=== PATIENT | male | born 1950 | race American Indian/Alaskan Native ===

== ENCOUNTER 2016-09-21 06:58 | Day surgery (SDC) | payer MEDICARE ==
[~2016-09-21 06:58] MED LIST: VANCOMYCIN/NS 1 GM/250 ML 1 GM/250 ML BAG IV NR
[2016-09-21] MEDS ORDERED: NACL 0.9% 1000 ML 1,000 ML ONE (07:21)
[2016-09-21] MEDS ORDERED: SUBLIMAZE ONE (07:51)
[2016-09-21] MEDS ORDERED: DIPRIVAN 10 MG/ML IV ONE ×2 (07:51→07:52)
[2016-09-21] MEDS ORDERED: XYLOCAINE MPF 2% ONE (07:52)
--- NOTE | 2016-09-21 07:52 | Anesthesia Consultation ---
Anesthesia Consult and Med Hx Date of service: 09/21/16 (Scheduled for lap Ventral Hernia repair) - Airway Anesthetic Teeth Evaluation: Partials (upper) ROM Head & Neck: Adequate Mental/Hyoid Distance: Adequate Mallampati Class: Class III Intubation Access Assessment: Possibly Difficult - Pulmonary Exam CTA: Yes - Cardiac Exam Cardiac Exam: RRR - Pre-Operative Health Status ASA Pre-Surgery Classification: ASA3 Proposed Anesthetic Plan: General - Pre-Anesthesia Comment Pre-Anesthesia Comments: No previous surgeries. Pt has tolerated anesthesia with yearly EGD's. NPO since midnight. - Pulmonary Hx Smoking: Yes (STOPPED X 40 YRS- 1/2 PPD) Hx Sleep Apnea: No (GABINO PRE SCREEN HIGH RISK) - Cardiovascular System Hx Hypertension: Yes (X 10 YRS) Hx Coronary Artery Disease: No Hx Heart Attack/AMI: No - Central Nervous System Hx Seizures: No CVA: No Hx Psychiatric Problems: No - Gastrointestinal Hx Gastroesophageal Reflux Disease: Yes (Controlled w/ meds) - Endocrine Hx Renal Disease: No Hx Cirrhosis: Yes (STATES FROM ALCOHOL ABUSE) Hx Liver Disease: Yes (Hep C) Hx Insulin Dependent Diabetes: Yes Hx Thyroid Disease: No - Hematic Hx Anemia: Yes Hx Sickle Cell Disease: No (SC TRAIT ONLY) - Other Systems Hx Alcohol Use: Yes (ALCOHOL ABUSE- DRY X 40 YRS) Hx Substance Use: Yes (HEROIN ABUSE- CLEAN X 40 YRS) Hx Cancer: No Hx Obesity: Yes (BMI=35)
[2016-09-21 08:00] LABS: Basophils % (Auto) 0.4 % (0.0-1.8); Eosinophils % (Auto) 3.1 % (0.0-4.3); Hematocrit 34.5 % (35.5-45.6); Hemoglobin 11.6 gm/dl (11.8-15.2); Mean Corpuscular HGB Conc 34 % (32-34); Mean Corpuscular Volume 75 fl (84-94); Platelet Count 100 K/mm3 (140-440); Red Blood Count 4.58 M/mm3 (3.65-5.03); Red Cell Distribution Width 14.8 % (13.2-15.2); White Blood Count 5.8 K/mm3 (4.5-11.0)
[2016-09-21] MEDS ORDERED: NACL 0.9% 1000 ML 1,000 ML IV SCH (08:00)
[2016-09-21] MEDS ORDERED: VERSED IV NR (08:00)
[2016-09-21] MEDS ORDERED: PEPCID PO NR (08:00)
[2016-09-21 08:02] LABS: Mean Corpuscular Hemoglobin 25 pg (28-32)
[2016-09-21] MEDS ORDERED: DILAUDID IV PRN (08:03)
--- NOTE | 2016-09-21 08:03 | Anesthesia Day of Surgery ---
Anesthesia Day of Surgery - Day of Surgery Patient Examined: Yes Patient H&P Reviewed: Yes Patient is NPO: Yes Beta Blockers: Yes Cardiac Clearance: No Pulmonary Clearance: No
[2016-09-21 08:20] LABS: Albumin/Globulin Ratio 1.1 %; Alkaline Phosphatase 51 units/L (35-129); Anion Gap 16 mmol/L; Bilirubin,Total 0.2 mg/dL (0.1-1.2); Blood Urea Nitrogen 20 mg/dL (9-20); Calcium 9.1 mg/dL (8.4-10.2); Carbon Dioxide 24 mmol/L (22-30); Chloride 100.9 mmol/L (98-107); Glucose 177 mg/dL (75-100); Potassium 4.3 mmol/L (3.6-5.0); Sodium 137 mmol/L (137-145); Total Protein 7.8 g/dL (6.3-8.2)
[2016-09-21] MEDS ORDERED: MARCAINE 0.25% INFILTRATI ONE ×3 (08:30→09:50)
[2016-09-21 08:31] LABS: Alanine Aminotransferase 106 units/L (7-56)
[2016-09-21] MEDS ORDERED: XYLOCAINE 1%/ EPI 1:100,000 INFILTRATI ONE (08:31)
[2016-09-21] MEDS ORDERED: ZOFRAN ONE ×2 (09:43→11:50)
[2016-09-21] MEDS ORDERED: NACL 0.9% IR ONE (09:50)
--- NOTE | 2016-09-21 10:13 | Short Stay Summary ---
Short Stay Documentation Date of service: 09/21/16 - Allergies and Medications Current Medications: Allergies Penicillins Allergy (Verified 09/13/16 14:41) Swelling Home Medications Medication Instructions Recorded Confirmed Last Taken Type Esomeprazole Magnesium [NexIUM] 40 mg PO QDAY 09/13/16 09/13/16 09/20/16 History Gabapentin [Neurontin] 1,200 mg PO QPM 09/13/16 09/13/16 09/20/16 History Hydrochlorothiazide [HCTZ] 25 mg PO QDAY 09/13/16 09/13/16 09/21/16 06:30 History Insulin Glargine [Lantus] 60 unit SUB-Q QHS 09/13/16 09/13/16 09/20/16 History Insulin Lispro [Humalog] 40 unit SQ BID 09/13/16 09/13/16 09/20/16 History Multivits,Ca,Min/Iron/FA/Lycop 1 each PO DAILY 09/13/16 09/13/16 09/20/16 History [Centrum Ultra Men's Tablet] Telmisartan [Micardis] 80 mg PO QDAY 09/13/16 09/13/16 09/21/16 06:30 History Ursodiol 300 mg PO DAILY 09/13/16 09/13/16 09/20/16 History amLODIPine [Norvasc] 10 mg PO DAILY 09/13/16 09/21/16 09/21/16 06:30 History Acetaminophen [Tylenol Arthritis] 650 mg PO PRN PRN 09/21/16 09/21/16 09/20/16 History Hydralazine HCl [Hydralazine HCl] 25 mg PO DAILY 09/21/16 09/21/16 09/21/16 06: 30 History Active Medications Famotidine (Pepcid) 20 mg PO PREOP NR Stop: 09/21/16 23:59 Last Admin: 09/21/16 08:36 Dose: 20 mg Fentanyl (Sublimaze) 50 mcg IV Q5MIN PRN PRN Reason: Pain , Severe (7-10) Stop: 09/21/16 18:00 Hydromorphone HCl (Dilaudid) 0.5 mg IV Q10MIN PRN PRN Reason: Pain , Severe (7-10) Stop: 09/21/16 18:00 Vancomycin HCl (Vancomycin/Ns 1 Gm/250 Ml) 1 gm in 250 mls @ 167.007 mls/hr IV PREOP NR PRN Reason: Protocol Stop: 09/21/16 23:00 Last Admin: 09/21/16 08:39 Dose: 167.007 mls/hr Sodium Chloride (Nacl 0.9% 1000 Ml) 1,000 mls @ 42 mls/hr IV DIRECT GERDA Last Admin: 09/21/16 07:45 Dose: 42 mls/hr Midazolam HCl (Versed) 2 mg IV PREOP NR Stop: 09/21/16 23:59 Last Admin: 09/21/16 08:37 Dose: 2 mg - Brief post op/procedure progress note Date of procedure: 09/21/16 Pre-op diagnosis: Soft tissue mass L shoulder >3cm Post-op diagnosis: same Procedure: Excision of soft tissue mass Anesthesia: GETA, local Surgeon: APRYL CHICAS Estimated blood loss: none Pathology: list (soft tissue mass) Specimen disposition: to lab Condition: stable - Disposition Condition at discharge: Good Disposition: DISCHARGED TO HOME OR SELFCARE Short Stay Discharge Plan Activity: no restrictions Diet: regular Wound: remove dressing (09/23/16 and then may shower) Follow up with: PHILIPPE RODRIGUEZ MD [Primary Care Provider] - 7 Days APRYL CHICAS MD [Staff Physician] - 7 Days Prescriptions: oxyCODONE /ACETAMINOPHEN [Percocet 5/325] 1 tab PO Q4HR PRN #20 tab PRN Reason: Pain
[2016-09-21] MEDS: SUBLIMAZE IV PRN ×2 (10:41→10:47)
[2016-09-21] MEDS ORDERED: PERCOCET 5/325 PO PRN (10:59)
[2016-09-21 11:06] VITALS: BP 160/82
--- NOTE | 2016-09-21 11:33 | Post Anesthesia Evaluation ---
- Post Anesthesia Evaluation Patient Participated: No Airway Patent: Yes Stable Respiratory Function: Yes Nausea/Vomiting: No Temp > 96.8F: Yes Pain Manageable: Yes Adequeate Hydration: Yes Anesthesia Complications: No Block Receding Appropriately: No Patient on Ventilator: No
--- NOTE | 2016-09-21 12:39 | Operative Report ---
PREOPERATIVE DIAGNOSIS: Soft tissue mass, left shoulder, greater than 3 cm. POSTOPERATIVE DIAGNOSIS: Soft tissue mass, left shoulder, greater than 3 cm. PROCEDURE: Excision of soft tissue mass, left shoulder, greater than 3 cm. SURGEON: Tato Levy MD ANESTHESIA: General and local. ESTIMATED BLOOD LOSS: Minimal. SPECIMEN: Soft tissue mass, left shoulder. COMPLICATIONS: None. INDICATIONS: This is a 66-year-old gentleman who has a soft tissue mass in the left shoulder, presents now for excision for diagnostic and therapeutic purposes. DESCRIPTION OF PROCEDURE: The patient was brought to the operating room, identified, and placed in the supine position. General anesthesia was achieved. His left shoulder and neck were prepped and draped in usual manner. We made a linear incision over top of the mass itself, dissected through the skin and thin layer of adipose tissue and then dissected the soft tissue mass out from the subcutaneous tissues staying above the muscles, but right down to the fascia. The soft tissue mass, once it was excised with cautery, was sent to pathology. There was a little vessel that this and this was ligated with a 3-0 Vicryl. We had good hemostasis at the end of procedure. No other pathology was seen. We closed the deeper layer with a couple of interrupted 3-0 Vicryls and then closed the skin with a running 4-0 Vicryl suture, Steri-Strips and bandage. He tolerated the procedure well without complications and that it should be noted that prior to closing the incision, we did inject the area with some Marcaine. JOB# [id number] FLAVIO/MICHELLE
== END 2016-09-21 11:38 | disposition home or self-care (01) ==
LOC: OR 06:58
PROVIDERS: ATTEND Surgery
DX: R22.32 Localized swelling, mass and lump, left upper limb (principal); M19.90 Unspecified osteoarthritis, unspecified site; I10 Essential (primary) hypertension; E11.40 Type 2 diabetes mellitus with diabetic neuropathy, unspecified; K21.9 Gastro-esophageal reflux disease without esophagitis; D64.9 Anemia, unspecified; F19.10 Other psychoactive substance abuse, uncomplicated; B19.20 Unspecified viral hepatitis C without hepatic coma; E66.9 Obesity, unspecified; Z68.35 Body mass index [BMI] 35.0-35.9, adult; Z79.899 Other long term (current) drug therapy; Z79.4 Long term (current) use of insulin; Z87.891 Personal history of nicotine dependence
CPT/HCPCS: 23071; 36415; 80053; 82962; 85025; 88307; J1170; J2250; J2405; J2704; J3010; J3370; J7030; 88304